=== PATIENT | male | born 1965 | race Caucasian/White ===

== ENCOUNTER 2018-02-04 15:36 | Emergency (ER) | payer MEDICARE, MEDICAID ==
[~2018-02-04] VITALS: Ht 172.7 cm; Wt 82.0 kg
[2018-02-04 15:40] VITALS: BP 152/105; PULSE 86; RESP 20; TEMP 99.1; O2SAT 96
[2018-02-04] MEDS ORDERED: DIPH25CA PO ×2 (15:51→15:52)
[2018-02-04] MEDS ORDERED: PERM5CRE11 TOPICAL ×2 (15:51→15:52)
--- NOTE | 2018-02-04 15:51 | PD ---
HPI Chief Complaint: Bite or Sting Time Seen by Provider: 15:48 Travel History International Travel<30 days: No Contact w/Intl Traveler<30days: No Traveled to known affect area: No History of Present Illness HPI 52-year-old male presents emergency department for evaluation of a pruritic rash on his abdomen, chest, waistline,, extremities. He states he noticed this 3 days ago after moving into a new hotel room. He states that he keep him up at night. His has been putting vinegar on them with no improvement in symptoms. He has had no fever chills. No recent illnesses. No other symptoms to report. PFSH Past Medical History Medical History: Denies Significant Hx Respiratory: Yes (ASTHMA) Social History Alcohol Use: Yes Tobacco Use: Yes Allergies-Medications (Allergen,Severity, Reaction): Coded Allergies: No Known Allergies (Unverified , 02/04/18) Reported Meds & Prescriptions Reported Meds & Active Scripts Active Diphenhydramine (Diphenhydramine HCl) 25 Mg Cap 25 Mg PO Q6H PRN Elimite Topical (Permethrin) 5% Cream 1 Applic TOPICAL ONCE Reported Ranitidine (Ranitidine HCl) 150 Mg Tab 150 Mg PO DAILY Lisinopril 20 Mg Tab 20 Mg PO DAILY Gabapentin Unknown Strength Cap Unknown Dose PO DAILY Review of Systems Except as stated in HPI: all other systems reviewed are Neg Physical Exam Narrative GENERAL: Well-nourished, well-developed male patient, ambulatory no acute distress SKIN: Focused skin assessment warm/dry. Micropapular rash of the trunk, along the waistline, and on the extremities with mild excoriation. No vesicle or pustule formation. HEAD: Normocephalic. EYES: No scleral icterus. No injection or drainage. NECK: Supple, trachea midline. No JVD or lymphadenopathy. CARDIOVASCULAR: Regular rate and rhythm without murmurs, gallops, or rubs. RESPIRATORY: Breath sounds coarse, equal bilaterally. No accessory muscle use. MUSCULOSKELETAL: No cyanosis, or edema. BACK: Nontender without obvious deformity. No CVA tenderness. Data Data Last Documented VS Vital Signs Date Time Temp Pulse Resp B/P (MAP) Pulse Ox O2 Delivery O2 Flow Rate FiO2 02/04/18 15:40 99.1 86 20 152/105 (121) 96 Orders Orders Ed Discharge Order (02/04/18 15:48) [facility] Medical Decision Making Medical Screen Exam Complete: Yes Emergency Medical Condition: Yes Medical Record Reviewed: Yes Differential Diagnosis Contact dermatitis versus scabies versus insect bite Narrative Course 52-year-old male presents emergency department for evaluation. Patient appears without distress. Physical exam is concerning for scabies although I have explained to him this can be many things. He will be treated for scabies and encouraged to seek dermatology evaluation. He agrees to return immediately with acute worsening symptoms. Diagnosis Primary Impression: Scabies Referrals: [employer] [employer] Primary Care Physician Patient Instructions: General Instructions, Scabies (ED) Additional Instructions: Avoid scratching the lesions Seek dermatology evaluation Return to ED with acute worsening of symptoms Med/Other Pt SpecificInfo: Prescription(s) given Scripts Diphenhydramine (Diphenhydramine) 25 Mg Cap 25 MG PO Q6H Y for ITCHING, #20 CAP 0 Refills Prov: Stella Solo 02/04/18 Permethrin Topical (Elimite Topical) 5% Cream 1 APPLIC TOPICAL ONCE for Scabies, #1 TUBE 0 Refills Prov: Stella Solo 02/04/18 Disposition: 01 DISCHARGE HOME Condition: Stable Stella Solo Feb 04, 2018 15:51
[2018-02-04] MEDS ORDERED: RANI150T PO (15:56)
[2018-02-04] MEDS ORDERED: LISI-515 PO (15:56)
[2018-02-04] MEDS ORDERED: GABA100C4 PO (15:56)
== END 2018-02-04 16:15 | disposition home or self-care (01) ==
LOC: NED 15:36
DX: B86 Scabies (principal); J45.909 Unspecified asthma, uncomplicated; Z72.0 Tobacco use; Z79.899 Other long term (current) drug therapy
CPT/HCPCS: 99283

== ENCOUNTER 2018-02-05 15:29 | Emergency (ER) | payer MEDICARE ==
[~2018-02-05] VITALS: Ht 172.7 cm; Wt 82.0 kg
[~2018-02-05 15:29] MED LIST: DIPH25CA PO; GABA100C4 PO; LISI-515 PO; PERM5CRE11 TOPICAL; RANI150T PO
[2018-02-05 15:32] VITALS: BP 145/72; PULSE 87; RESP 16
--- NOTE | 2018-02-05 15:44 | PD ---
HPI Chief Complaint: Skin Problem Time Seen by Provider: 15:43 Travel History International Travel<30 days: No Contact w/Intl Traveler<30days: No Traveled to known affect area: No History of Present Illness HPI 52-year-old male presents emergency department for reevaluation of a pruritic rash. Patient was seen and evaluated yesterday by me. He had developed a micropapular rash on his trunk, whistling, extremities. This was concerning for scabies patient was given Elimite. I also explained to him other options that this could be. He returns today saying that he still itches. He did use the Elimite last night. He does not feel it has gotten any worse and thinks it may be getting a little better, but he is concerned because it still itches. He has no other symptoms to report. No other new exposures. History Past Medical Histgory Hx Cancer: Yes (LEFT BREAST CA) Social History Alcohol Use: Yes Tobacco Use: Yes Allergies-Medications (Allergen,Severity, Reaction): Coded Allergies: No Known Allergies (Unverified , 02/04/18) Reported Meds & Prescriptions Reported Meds & Active Scripts Active Diphenhydramine (Diphenhydramine HCl) 25 Mg Cap 25 Mg PO Q6H PRN Elimite Topical (Permethrin) 5% Cream 1 Applic TOPICAL ONCE Reported Ranitidine (Ranitidine HCl) 150 Mg Tab 150 Mg PO DAILY Lisinopril 20 Mg Tab 20 Mg PO DAILY Gabapentin Unknown Strength Cap Unknown Dose PO DAILY Review of Systems Except as stated in HPI: all other systems reviewed are Neg Physical Exam Narrative GENERAL: Well-nourished, well-developed male patient in no acute distress SKIN: Focused skin assessment warm/dry. Micropapular rash on the trunk and extremities. Mild excoriation. No vesicle or pustule formation. HEAD: Normocephalic. EYES: No scleral icterus. No injection or drainage. NECK: Supple, trachea midline. No JVD or lymphadenopathy. CARDIOVASCULAR: Regular rate RESPIRATORY: No accessory muscle use. GASTROINTESTINAL: Abdomen nondistended. MUSCULOSKELETAL: No cyanosis, or edema. BACK: without obvious deformity. Data Data Last Documented VS Vital Signs Date Time Temp Pulse Resp B/P (MAP) Pulse Ox O2 Delivery O2 Flow Rate FiO2 02/05/18 15:32 87 16 145/72 (96) MDM Medical Screen Exam Complete: Yes Emergency Medical Condition: No Differential Diagnosis Probable scabies Narrative Course 52-year-old male presents emergency department for reevaluation of a skin eruption. Physical exam and history still consistent and concerning for scabies. I offered reassurance. I encouraged him to not scratch the area and take [id number] Benadryl. I encouraged follow-up with dermatology if symptoms persisted and return immediately with acute worsening of symptoms. At this time there are no urgent or emergent needs medical intervention identified. A medical screening exam was performed: At the time of evaluation the presenting medical condition was determined not to be of an emergent nature. The patient was given the option of receiving additional care, but declined. Patient was given options for additional community resources from which to obtain care. The Patient Has Been advised to seek medical attention for their presenting complaint. The patient has been advised to return to the ER at any time if an emergent condition develops. Primary Impression: Encounter for medical screening examination Condition: Stable Stella Solo Feb 05, 2018 15:44
== END 2018-02-05 16:08 | disposition left against medical advice (07) ==
LOC: NED 15:29
DX: R21 Rash and other nonspecific skin eruption (principal)
CPT/HCPCS: 99281